=== PATIENT | female | born 2000 | race Caucasian/White ===

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

== ENCOUNTER → 2018-02-25 | Outpatient (CLI) | payer OTHER ==
[2018-02-25 10:09] LABS: CULTURE INDICATED? NO; MICROSCOPIC NOT IND
[2018-02-25 10:13] LABS: ALANINE AMINOTRANSFERASE 27 U/L (12-78); ALBUMIN 3.6 g/dL (3.4-5.0); ANION GAP 7 mmol/L (5-15); CALCIUM 8.6 mg/dL (8.5-10.1); CHLORIDE 109 mmol/L (98-107); CREATININE 0.67 mg/dL (0.55-1.02)
[2018-02-25 10:18] LABS: ALKALINE PHOSPHATASE 73 U/L (45-117); BILIRUBIN,TOTAL 0.2 mg/dL (0.2-1.0); TOTAL PROTEIN 7.7 g/dL (6.4-8.2)
[2018-02-25 10:23] LABS: BASOPHILS # (AUTO) 0.03 x10^3/uL (0-0.3); BASOPHILS % (AUTO) 1 % (0-1); EOSINOPHILS # (AUTO) 0.27 x10^3/uL (0-0.8); EOSINOPHILS % (AUTO) 5 % (1-7); LYMPHOCYTES % (AUTO) 44 % (22-44); MD NO; MEAN CORPUSCULAR HEMOGLOBIN 27.8 pg (27.0-34.8); MEAN CORPUSCULAR HGB CONC 33.3 g/dL (32.4-35.8); MEAN CORPUSCULAR VOLUME 83.5 fL (80-100); MEAN PLATELET VOLUME 8.4 fL (7.4-10.4); MONOCYTES # (AUTO) 0.41 x10^3/uL (0-1.4); MONOCYTES % (AUTO) 7 % (2-9); NEUTROPHILS # (AUTO) 2.47 x10^3/uL (1.8-8.0); NEUTROPHILS % (AUTO) 44 % (42-75); PLATELET COUNT 398 x10^3/uL (130-400); RED BLOOD COUNT 4.87 x10^6/uL (3.82-5.3); RED CELL DISTRIBUTION WIDTH 15.6 % (9.6-15.2)
== END | disposition home or self-care (01) ==
LOC: STAR 09:04
PROVIDERS: ATTEND Obstetrics & Gynecology Gynecology
DX: Z01.818 Encounter for other preprocedural examination (principal); N83.202 Unspecified ovarian cyst, left side
CPT/HCPCS: 36415; 80053; 81003; 84702; 85025; 93005

== ENCOUNTER 2018-03-03 07:55 | Inpatient (IN) | payer OTHER ==
[~2018-03-03] VITALS: Ht 160 cm; Wt 107.0 kg
[2018-03-03 08:18] VITALS: BP 136/85
[2018-03-03 08:21] VITALS: BP 136/85
[2018-03-03] MEDS ORDERED: LACTATED RINGERS 1,000 ML IV SCH (08:25)
[2018-03-03] MEDS ORDERED: PROMETHAZINE 25 MG/ML, 1ML IV PRN (08:30)
[2018-03-03] MEDS ORDERED: OXYcodone 5 MG/5 ML ORAL.SOL UDC PO PRN (08:30)
[2018-03-03] MEDS ORDERED: HYDROmorphone 2 MG/ML, 1ML IV PRN (08:30)
[2018-03-03] MEDS ORDERED: FENTANYL PF 100 MCG/2ML IV PRN (08:30)
[2018-03-03] MEDS ORDERED: MIDAZOLAM 1 MG/ML, 2ML ONE (08:58)
[2018-03-03] MEDS ORDERED: OXYcodone IR 5MG TABLET PO ONE (09:00)
[2018-03-03] MEDS ORDERED: SCOPOLAMINE PATCH, 1.5MG PATCH.TD72 TD ONE (09:00)
[2018-03-03] MEDS ORDERED: ACETAMINOPHEN 500 MG TABLET PO ONE (09:00)
[2018-03-03] MEDS ORDERED: FAMOTIDINE 20 MG TABLET PO ONE (09:00)
[2018-03-03] MEDS ORDERED: FENTANYL PF 250 MCG/5ML ONE (09:41)
[2018-03-03] MEDS ORDERED: GLYCOPYRROLATE 0.2MG/1ML, 5ML ONE (09:42)
[2018-03-03] MEDS ORDERED: KETOROLAC 30 MG/1 ML ONE (09:42)
[2018-03-03] MEDS ORDERED: SUCCINYLCHOLINE 20 MG/ML, 10ML ONE (09:42)
[2018-03-03] MEDS ORDERED: CEFAZOLIN 1,000 MG ONE ×2 (09:42)
[2018-03-03] MEDS ORDERED: ONDANSETRON 2MG/ML, 2ML ONE (09:42)
[2018-03-03] MEDS ORDERED: PROPOFOL 10 MG/ML, 20ML ONE ×2 (09:42)
[2018-03-03] MEDS ORDERED: DEXAMETHASONE 4 MG/ML, 1ML ONE ×2 (09:42)
[2018-03-03] MEDS ORDERED: NEOSTIGMINE 1 MG/ML, 10ML ONE (09:42)
[2018-03-03] MEDS ORDERED: OXYcodone 5 MG/5 ML ORAL.SOL UDC ONE (11:13)
[2018-03-03] MEDS ORDERED: HYDROmorphone 2 MG/ML, 1ML ONE (11:27)
[2018-03-03] MEDS ORDERED: OXYcodone/APAP 5/325MG TABLET PO PRN (13:30)
[2018-03-03] MEDS ORDERED: morphine SULFATE 10 MG/ML, 1ML IV PRN (13:30)
[2018-03-03] MEDS ORDERED: KETOROLAC 30 MG/1 ML IV PRN (13:30)
[2018-03-03] MEDS ORDERED: IBUPROFEN 200 MG TABLET ONE ×2 (13:51→21:22)
[2018-03-03] MEDS: IBUPROFEN 600 MG TABLET PO SCH ×2 (13:54→21:00)
[2018-03-03 14:00] VITALS: BP 123/77
[2018-03-03] MEDS ORDERED: ROCURONIUM 10 MG/ML,10ML ONE (15:56)
[2018-03-03] MEDS ORDERED: CEFAZOLIN PMX 2GM/100ML 100 ML IVPB SCH (18:00)
[2018-03-03 19:15] VITALS: BP 123/76
[2018-03-03] MEDS ORDERED: SENNA/DOCUSATE TABLET PO SCH (21:00)
[2018-03-03] MEDS: IBUPROFEN 200 MG TABLET PO SCH (21:00)
[2018-03-03] MEDS ORDERED: CEFAZOLIN PMX 2GM/50ML 50 ML IVPB SCH (21:30)
[2018-03-04] MEDS: IBUPROFEN 200 MG TABLET PO SCH ×2 (05:58→11:26)
[2018-03-04 08:00] VITALS: BP 135/81
== END 2018-03-04 13:30 | disposition home or self-care (01) | DRG 743 ==
LOC: ORIP 07:55 → 3WST 12:05
PROVIDERS: ADMIT Obstetrics & Gynecology Gynecology; ATTEND Obstetrics & Gynecology Gynecology
PROC: 0UT10ZZ Resection of Left Ovary, Open Approach (ICD-10-PCS; 2018-03-03)
PROC: 0UT60ZZ Resection of Left Fallopian Tube, Open Approach (ICD-10-PCS; principal; 2018-03-03 10:00)
DX: N83.202 Unspecified ovarian cyst, left side (principal); N83.201 Unspecified ovarian cyst, right side; Z83.3 Family history of diabetes mellitus
CPT/HCPCS: 36415; J3490; 81025; 86850; 86900; 88305; J0690; J1100; J1885; J2250; J2405; J2704; J2710; J3010; J0330; J7120